=== PATIENT | male | born 1945 | race Caucasian/White ===

== ENCOUNTER 2017-03-19 07:44 | Outpatient (CLI) | payer MEDICARE ==
[~2017-03-19] VITALS: Ht 177.8 cm; Wt 84.1 kg
--- NOTE | ~2017-03-19 | HEMODYNAMI ---
PATIENT:SALMA COLEY MEDICAL RECORD: [id number] : 41 LOCATION:[facility] ADMISSION DATE: 03/19/17 Generatedon:03/19/201711:39 Patient name: SALMA COLEY Patient #: [id number] SSN: : 1945 Date of study: 03/19/2017 Page: Of Hemodynamic Procedure Report Patient Data Patient Demographics Procedure consent was obtained First Name: SALMA Gender: Male Last Name: VIANCA : 1945 Patient #: [id number] Age: 71 year(s) Race: Unknown Additional ID: [id number] Contact details Address: [place] [address] State: [place] City: [place] Zip code: [address] Past Medical History Allergies: No known allergies Admission Admission Data Admission Date: 03/19/2017 Admission Time: 7:44 Lab Results Lab Result Date: 03/19/2017 Lab Result Time: 0:00 Biochemistry Name Units Result Min Max BUN mg/dl 16 --(---*)-- 7 18 Creatinine mg/dl 1.2 --(---*)-- 0.6 1.3 CBC Name Units Result Min Max Hemoglobin g/dl 14.6 --(-*--)-- 13.5 17.5 Procedure Procedure Types Cath Procedure Diagnostic Procedure C LHC w/Coronaries w/Grafts Miscellaneous Procedures Moderate Sedation up to 15 minutes Procedure Description Procedure Date Procedure Date: 03/19/2017 Procedure Start Time: 11:23 Procedure End Time: 11:39 Procedure Staff Name Function Naveen Verdugo MD Performing Physician Samantha Jensen RN Nurse Babatunde Friedman RT Monitor Alan Valderrama RT Scrub Procedure Data Cath Procedure Fluoroscopy Diagnostic fluoroscopy Total fluoroscopy Time: 1.9 time: 1.9 min min Diagnostic fluoroscopy Total fluoroscopy dose: 389 dose: 389 mGy mGy Contrast Material Contrast Material Type Amount (ml) Isovue 300 71 Entry Location Entry Primary Successful Side Size Upsize Upsize Entry Closure Succes sful Closure Location (Fr) 1 (Fr) 2 (Fr) Remarks Device Remarks Femoral Right 5 Fr Vascade artery Closure System Diagnostic catheters Device Type Used For End Catheter Placement Cordis 5Fr Pigtail LV Angiography Catheter (MP) Cordis 5Fr JL 4.0 Left Coronary Catheter (MP) Angiography Cordis 5Fr 3DRC Catheter SVG Angiography (MP) Diagnostic Infinity 5Fr SVG Angiography AR 2 MOD catheter Procedure Complications No complications Procedure Medications Medication Administration Route Dosage Oxygen NC 2 l/min Heparin Flush Bag added to field 2 bags (1000units/500ml NS) Lidocaine 2% added to field 20 Versed I.V. 1 mg Fentanyl I.V. 50 mcg Versed I.V. 1 mg Fentanyl I.V. 50 mcg Fentanyl I.V. 50 mcg Hemodynamics Rest HGB: 14.6 (g/dl) Heart Rate: 57 (bpm) Snapshots Pre Cath Intra NCS Post Cath Vital Signs Time Heart Resp SPO2 NIBP (mmHg) Rhythm Pain Sedation Rate (ipm) (%) Status Level (bpm) 10:46:03 57 18 97 158/96(121) SB 0 (11) 10(A) , No pain 10:51:02 55 17 98 Measuring SB 0 (11) 10(A) , No pain 10:51:29 55 15 97 213/100(172) SB 0 (11) 10(A) , No pain 10:56:01 55 17 99 174/79(145) SB 0 (11) 10(A) , No pain 11:00:27 51 16 99 147/76(115) SB 0 (11) 10(A) , No pain 11:05:27 49 16 99 Measuring SB 0 (11) 10(A) , No pain 11:05:43 51 16 99 140/71(108) SB 0 (11) 10(A) , No pain 11:10:03 50 16 99 129/64(87) SB 0 (11) 10(A) , No pain 11:14:21 51 16 99 94/59(73) SB 0 (11) 10(A) , No pain 11:18:29 51 16 98 104/52(73) SB 0 (11) 10(A) , No pain 11:22:41 48 16 98 93/49(73) SB 0 (11) 9(A) , No pain 11:27:36 49 18 98 139/69(89) SB 0 (11) 9(A) , No pain 11:33:38 53 18 99 129/65(83) SB 0 (11) 9(A) , No pain Medications Time Medication Route Dose Verified Delivered Reason Notes Effec tiveness by by 10:46:05 Oxygen NC 2 Naveen Samantha Per l/min Kartik Jensen RN physician 10:46:13 Lidocaine 2% added 20ml Naveen Naveen used for to vial Kartik Verdugo MD procedure field 10:46:13 Heparin Flush added 2 Naveen Naveen used for Bag to bags Kartik Verdugo MD procedure (1000units/500ml field NS) 11:14:36 Versed I.V. 1 mg Naveen Samantha for Kartik Jensen RN sedation 11:14:44 Fentanyl I.V. 50 Naveen Samantha for mcg Kartik Jensen RN sedation 11:16:03 Fentanyl I.V. 50 Naveen Samantha for mcg Kartik Jensen RN sedation 11:16:56 Versed I.V. 1 mg Naveen Samantha for Kartik Jensen RN sedation 11:18:47 Fentanyl I.V. 50 Naveen Samantha for mcg Kartik Jensen RN sedation Procedure Log Time Note 10:20:16 Time tracking: Regular hours 10:20:19 Plan of Care:Hemodynamics will remain stable., Cardiac rhythm will remain stable., Comfort level will be maintained., Respiratory function will remain adequate., Patient/ family verbilizes understanding of procedure., Procedure tolerated without complication., Recovers from procedure without complications.. 10:25:15 Alan MCMANUS(R) sent for patient. Start room use. 10:40:30 Patient received from Pre/Post Procedure Room to CCL 2 Alert and oriented. Tansferred to table in Supine position. 10:40:31 Warm blankets applied, and leo hugger turned on for patient comfort. 10:40:32 Correct patient and procedure confirmed by team. 10:40:33 Signed procedure consent form obtained from patient. 10:40:34 ECG and BP/O2 sat monitors applied to patient. 10:44:46 Vital chart was started 10:46:05 Oxygen 2 l/min NC was administered by Samantha Jensen RN; Per physician; 10:46:13 Lidocaine 2% 20ml vial added to field was administered by Naveen Verdugo MD; used for procedure; 10:46:13 Heparin Flush Bag (1000units/500ml NS) 2 bags added to field was administered by Naveen Verdugo MD; used for procedure; 10:49:34 Baseline sample Acquired. 10:49:38 Rhythm: sinus rhythm 10:49:40 Full Disclosure recording started 10:50:30 H&P Date Dictated: 03/05/2017 Within 30 days and on chart., H&P Addendum completed by physician on day of procedure. (MUST COMPLETE FOR ALL OUTPATIENTS). 10:50:31 Pre-procedure instructions explained to patient. 10:50:31 Pre-op teaching completed and patient verbalized understanding. 10:50:33 Family in waiting room. 10:50:34 Patient NPO since Midnight. 10:50:41 Patient allergic to No known allergies 10:50:43 Is the patient allergic to Iodine/contrast media? No. 10:50:50 Is patient on blood thinner?Yes 10:50:52 ACC The patient was administered the following blood thiners within the last 24 hours: ACCPlavix 10:50:54 Patient diabetic? No. 10:50:55 ----Pre-sedation anethsthesia assessment.---- 10:50:58 Previous problem with sedation/anesthesia? No ? 10:50:59 Snore? Yes 10:51:00 Sleep apnea? No 10:51:01 Deviated septum? No 10:51:02 Opens mouth fully? Yes 10:51:03 Sticks out tongue? Yes 10:51:05 Airway obstruction? No ? 10:51:09 Dentures? Yes in tight 10:51:12 Pre procedure: right dorsailis pedis pulse 1+ Palpable, but thready & weak; easily obliterated 10:51:16 Patient pain scale 0/10 ?. 10:51:29 IV patent on arrival in left hand with 0.9% NaCl at 10ml/hr. 10:53:44 Lab Result : BUN 16 mg/dl 10:53:44 Lab Result : Creatinine 1.2 mg/dl 10:53:44 Lab Result : Hemoglobin 14.6 g/dl 10:55:55 Lab results completed and on chart. 10:55:57 Right groin area was prepped with chlora-prep and draped in sterile fashion 10:55:58 Alarms reviewed by R. N. 10:55:58 Sharps counted by scrub and verified by R.N. 11:04:47 Zero performed for pressure channel P1 11:14:10 --------ALL STOP TIME OUT------ 11:14:11 Final Timeout: patient, procedure, and site verified with staff and physician. All members of the team are in agreement. 11:14:14 Right groin site verified by team. 11:14:18 Physical assessment completed. ASA score P 2 - A patient with mild systemic disease as per Naveen Verdugo MD. 11:14:22 Sedation plan: IV Moderate Sedation Versed, Fentanyl 11:14:36 Versed 1 mg I.V. was administered by Samantha Jensen RN; for sedation; 11:14:44 Fentanyl 50 mcg I.V. was administered by Samantha Jensen RN; for sedation; 11:16:03 Fentanyl 50 mcg I.V. was administered by Samantha Jensen RN; for sedation; 11:16:56 Versed 1 mg I.V. was administered by Samantha Jensen RN; for sedation; 11:18:47 Fentanyl 50 mcg I.V. was administered by Samantha Jensen RN; for sedation; 11:19:04 Use device set Femoral Dx 11:19:05 Tegaderm 4 x 4 opened to sterile field. 11:19:07 Acist Hand Control opened to sterile field. 11:19:08 Acist Manifold opened to sterile field. 11:19:09 Acist Syringe opened to sterile field. 11:19:10 Bag Decanter opened to sterile field. 11:19:10 Medline Cath Pack opened to sterile field. 11:19:11 Terumo 5Fr [place] Sheath opened to sterile field. 11:19:11 St Reji 260cm J .035 wire opened to sterile field. 11:19:13 Diagnostic Infinity 5Fr Multipack catheter opened to sterile field. 11:22:45 Zero performed for pressure channel P1 11:22:52 Zero performed for pressure channel P1 11:23:10 Procedure started. 11:23:20 Local anesthetic to right femoral artery with Lidocaine 2% by Naveen Verdugo MD.INITIAL ACCESS ONLY 11:23:27 A 5 Fr sheath was inserted into the Right Femoral artery 11:23:35 Procedure type changed to Cath procedure, Diagnostic procedure, LHC, LHC w/Coronaries w/Grafts, Miscellaneous Procedures, Moderate Sedation up to 15 minutes 11:24:25 A Cordis 5Fr Pigtail Catheter (MP) was advanced over the wire and used for LV Angiography. 11:24:34 LV angiography performed. 11:24:35 LV gram done using MCBRIDE 11:24:40 EF : 60 % 11:24:43 Injector settings: Ml/sec: 10, Volume: 20, 11:24:44 Catheter removed. 11:24:49 A Cordis 5Fr JL 4.0 Catheter (MP) was advanced over the wire and used for Left Coronary Angiography. 11:24:52 LCA angiography performed. 11:25:27 Catheter removed. 11:25:32 A Cordis 5Fr 3DRC Catheter (MP) was advanced over the wire and used for SVG Angiography. 11:26:36 CHAIDEZ to LAD angiography performed. 11:26:45 RCA angiography performed. 11:27:06 Catheter removed. 11:27:11 A Diagnostic Infinity 5Fr AR 2 MOD catheter was advanced over the wire and used for SVG Angiography. 11:27:41 SVG to Circ angiography performed. 11:27:53 SVG to RCA angiography performed. 11:28:06 Catheter removed. 11:28:11 Contrast amount:Isovue 300 71ml. 11:28:16 Sheath removed intact; hemostasis achieved with Vascade Closure System to the Right Femoral artery. 11:28:28 Procedure ended.(Physican Out) 11:28:41 Fluoroscopy time 01.90 minutes. 11:28:45 Fluoroscopy dose: 389 mGy 11:28:45 Flurop Dose total: 389 11:28:47 Sharps counted by scrub and verified by R.N. 11:28:48 Insertion/operative site no bleeding no hematoma. 11:28:51 Post-op/insertion site Right Femoral artery dressed using a 4 x 4 and Tegaderm. 11:28:54 Post right femoral artery:stable 11:29:55 Vascade 5Fr Closure Device opened to sterile field. 11:30:03 Post Procedure Pulses reassessed and unchanged 11:30:05 Post procedure: right dorsailis pedis pulse 1+ Palpable, but thready & weak; easily obliterated. 11:30:08 Post procedure rhythm: sinus rhythm 11:30:09 Post procedure instruction explained to patient.Patient verbalizes understanding. 11:30:35 Procedure and supply charges have been captured, reviewed, submitted and are correct. 11:30:38 Procedure Complication : No complications 11:30:41 Vital chart was stopped 11:30:42 See physician's report for complete and final results. 11:30:44 Report given to Pre/Post Procedure Room. 11:30:47 Patient transfered to Pre/Post Procedure Room with Stretcher. 11:39:10 Procedure ended. 11:39:10 Full Disclosure recording stopped 11:39:18 End room use (Document Last) Device Usage Item Name Manufacture Quantity Catalog Number Hospital Part Current Minima l Lot# / Charge Number Stock Stock Serial# Code Tegaderm 4 3M 1 [id number] [id number] [id number] 5 x 4 Acist Hand Acist 1 99550 954337 506568 495206 5 Control [employer] Inc Acist Acist 1 74410 365424 798892 191545 5 Manifold [employer] Inc Acist Acist 1 31396 372511 512278 047272 20 Syringe Medical Systems Inc Bag Microtek 1 2002S 186564 24284 308248 5 Decanter [employer] Inc. Medline Cardinal 1 [id number] 221001 25776 827266 5 Cath Pack Health Terumo 5Fr Terumo 1 [id number] 768632 133186 866095 [address] Reji 1 932622 953015 905657 713917 30 260cm J .035 wire Diagnostic Cardinal 1 [id number] 413252 27119 526142 30 Infinity Health 5Fr Multipack catheter Cordis 5Fr Cardinal 1 [id number] 5 Pigtail Health Catheter (MP) Cordis 5Fr Cardinal 1 541128 5 JL 4.0 Health Catheter (MP) Cordis 5Fr Cardinal 1 [id number] 5 3DRC Health Catheter (MP) Diagnostic Cardinal 1 [id number] 578583 321770 308456 20 Infinity Health 5Fr AR 2 MOD catheter Vascade Cardiva 1 [id number] 868071 61156 329907 10 5Fr [employer], Closure Inc[employer] Device Signature Audit [place] Stage Time Signature Unsigned Intra-Procedure 03/19/2017 Babatunde Friedman 11:39:46 AM RT(R) Signatures Monitor : Babatunde Friedman RT Signature : Date : Time : [facility] [address] [place] [address]
[2017-03-19] MEDS ORDERED: LEVOTHYROXINE112 MCG PO (08:14)
[2017-03-19] MEDS ORDERED: PLAVIX75 MG PO (08:14)
[2017-03-19] MEDS ORDERED: PRAVASTATIN SOD10 MG PO (08:14)
[2017-03-19] MEDS ORDERED: COZAAR100 MG PO (08:14)
[2017-03-19] MEDS ORDERED: ULTRAM50 MG PO (08:15)
[2017-03-19 08:22] VITALS: BP 193/94; Ht 177.8 cm; Wt 84.1 kg
[2017-03-19 09:14] LABS: BASOPHILS 0.5 % (0-2); EOSINOPHILS 5.7 % (0-7); HEMATOCRIT 43.8 % (42.0-54.0); HEMOGLOBIN 14.6 g/dL (13.5-17.5); IMMATURE GRANULOCYTES 0.2 % (0-5); LYMPHOCYTES 20.5 % (15-50); MCH 29.4 pg (26.0-34.0); MCHC 33.3 g/dL (31.0-37.0); MCV 88.1 fL (80.0-100.0); MONOCYTES 9.7 % (2-11); NEUTROPHILS 63.4 % (40-80); PLATELET COUNT 197 10x3/uL (130-400); RBC 4.97 10x6/uL (4.20-6.10); RDW 13.6 % (11.5-14.5); WBC 9.8 10x3/uL (4.8-10.8)
[2017-03-19 09:27] LABS: ANION GAP 9.4 mmol/L (8-16); CALCIUM 8.8 mg/dL (8.5-10.1); CARBON DIOXIDE 30.1 mmol/L (21.0-32.0); CREATININE - SERUM 1.2 mg/dL (0.6-1.3); POTASSIUM - SERUM 4.5 mmol/L (3.5-5.1)
--- NOTE | 2017-03-19 12:19 | NUR ---
1200-RIGHT GROIN CDI, NO HEMATOMA OR BLEEDING NOTED, SOFT TO TOUCH
--- NOTE | 2017-03-19 12:34 | NUR ---
CONTINUE TO REST WITH AT SIDE, RIGHT GROIN CDI, NO HEMATOMA OR BLEEDING NOTED. SOFT TO TOUCH
--- NOTE | 2017-03-19 13:12 | NUR ---
SANDWICH AND JUICE TO BEDSIDE VSS WITH CHEST PAIN DENIED 5 FR VASCADE R/GROIN CDI NO BLEEDING NO HEMATOMA NOTED
--- NOTE | 2017-03-19 13:32 | NUR ---
REPOSITIONED TO SITTING WITH HOB UP 30 DEGREES CHEST PAIN IS DENIED. 5 FR VASCADE R/GROIN CDI NO BLEEDING NO HEMATOMA NOTED. DR STOVALL AT BEDSIDE
--- NOTE | 2017-03-19 13:45 | NUR ---
PIV REMOVED WITH DRESSING APPLIED. 5 FR VASCADE R/GROIN CDI NO BLEEDING NO HEMATOMA NOTED. PATIENT UP TO GET DRESSED FOR DISCHARGE HOME CHEST PAIN DENIED
--- NOTE | 2017-03-21 16:36 | OP ---
PATIENT NAME: SALMA COLEY MEDICAL RECORD: [id number] :41 LOCATION:[facility] ADMISSION DATE: SURGEON: TRACIE STOVALL MD DATE OF OPERATION: 03/19/2017 PROCEDURES: 1. Left heart catheterization. 2. Selective coronary angiography. 3. Vein graft angiography. 4. CHAIDEZ angiography. 5. Left ventriculogram. INDICATION: Angina and coronary artery disease. PROCEDURE IN DETAIL: After informed consent was obtained and after detailed explanation of risks, benefits as well as alternative therapies, the patient elected to proceed with angiogram and heart catheterization. The right femoral area was prepped and draped in normal sterile fashion. The right femoral artery was cannulated via modified Seldinger technique with placement of 5-Brazilian sheath. All catheters exchanged through this sheath. FINDINGS: Left ventriculogram was performed in the standard 30-degree MCBRIDE view reveals good cardiac wall motion throughout all segments. Overall ejection fraction estimated 60%. SELECTIVE CORONARY ANGIOGRAPHY: 1. Left main showed no significant angiographic disease. 2. Left circumflex is closed. 3. Left anterior descending is closed in mid vessel. 4. Right coronary is closed in the mid vessel. 5. CHAIDEZ to the LAD is widely patent. Distal LAD is diffusely diseased, small, but widely patent. 6. Vein graft to circumflex is widely patent. Distal circumflex is diffusely diseased, small, but widely patent. 7. Vein graft to the RCA is patent. The distal vessel is small, diffusely diseased, but widely patent. OVERALL IMPRESSION: 1. Wide patency of all of his grafts. 2. Diffuse disease of all distal vessels. This is etiology of the chronic stable angina, but there is no flow-limiting stenosis for transcatheter revascularization, at this time, only medical management of the chronic stable angina. TRANSINT:[id number] Voice Confirmation ID: [id number] DOCUMENT ID: [id number] TRACIE STOVALL MD at 1636 CC: [id number] DICTATION DATE: 03/19/17 1133 NOTE KEEPER: 03/19/171951 DEP CLI 03/19/17 [facility] [address] [place] [address]
== END 2017-03-19 14:00 | disposition home or self-care (01) ==
LOC: D.CATH 07:44
PROVIDERS: Internal Medicine Interventional Cardiology
DX: I25.10 Atherosclerotic heart disease of native coronary artery without angina pectoris (principal); I10 Essential (primary) hypertension; E78.5 Hyperlipidemia, unspecified; Z01.812 Encounter for preprocedural laboratory examination